=== PATIENT | male | born 1995 ===

== ENCOUNTER 2025-03-12 11:50 | Emergency (ER) | payer OTHER ==
[~2025-03-12] VITALS: Ht 185.4 cm; Wt 105.6 kg
--- NOTE | 2025-03-12 12:51 | ED.PDOC ---
HPI Comments This is a 29-year-old male who was putting shades up at his home he lost his footing and grabbed the hook that is attached to the shave caused a laceration to his right 2nd digit.. Tetanus is not up-to-date. No difficulty moving his. Actual finger just a laceration Chief Complaint: Laceration Time Seen by MD: 12:00 Reviewed Notes: Nurses Notes, Medications, Allergies Allergies: Coded Allergies: NO KNOWN ALLERGIES (Unverified , 03/12/25) Information Source: Patient Mode of Arrival: Ambulatory Severity: Moderate Complexity: Simple Laceration Length (cm): 4 Past Medical History PAST MEDICAL HISTORY: Denies Social History Smoker: Non-Smoker Alcohol: Rarely Drugs: Denies Drug Use Lives In: Home Integumetry: reports: laceration (Right 2nd digit) Physical Exam General Appearance: No Apparent Distress, Normal HEENT: Normal ENT Inspection, PERRL/EOMI, TMs Normal Neck: Full Range of Motion, Non-Tender, Normal Inspection Respiratory: Lungs Clear, No Respiratory Distress, Normal Breath Sounds Cardiovascular: Regular Rate/Rhythm Breast Exam: Deferred Gastrointestinal: Non Tender, Soft Genitalia: Deferred Pelvic: Deferred Rectal: Deferred Extremities: Tender (Right 2nd digit with a large laceration at the finger tip mostly macerated with multiple areas, of skin completely avulsed full range of motion of the finger without difficulty) Neurologic: Alert, Normal Mood Cerebellar Function: NOT DONE Reflexes: Normal Skin: Lacerations Lymphatic: No Adenopathy Was a procedure done? Was a procedure done?: Yes Sedation Sedation?: No Informed consent obtained: Yes Laceration Repair : Location Right 2nd digit Length 3 cm in length Anesthetic: Lidocaine, Without epi Laceration Repair Prep: Saline, by Irrigation, Manual Scrub Laceration Repair Wound Comple: epidermis/dermis repair Laceration Repair: Number of sutures (Five) Informed consent obtained: Yes Risks, benefits, and alternati: Yes Differential diagnosis Generic Laceration: Tendon Injury, Abrasion/Contusion X-Ray, Labs, Meds, VS Vital Signs Date Time Temp Pulse Resp B/P (MAP) Pulse Ox O2 Delivery O2 Flow Rate FiO2 03/12/25 11:51 97.9 54 16 133/89 100 97.9 X-Ray, Labs, Meds, VS Comment Patient seen and examined by me. Patient has a large laceration with macerated skin to the right 2nd digit. No x-ray was indicated at the time patient would good sensation I was able to suture up as much as I could with the exception of the area that was macerated. Patient is aware that he will have a scar postprocedure instructions were given. Time of 1ST Reevaluation: 12:47 Reevaluation 1ST: Improved Patient Education/Counseling: Diagnosis, Treatment, Prognosis, Need For Follow Up Family Education/Counseling: No Family Present Departure 1 Departure Time of Disposition: 12:48 Impression: Primary Impression: Laceration Disposition: 01 HOME / SELF CARE / HOMELESS Condition: Good Additional Instructions: Keep the dressing on for the next 48 hours Once the dressing is removed cleaned the area and apply the nonstick dressing Stitches come out in day 10 Try to live it limit movement Discharged With: Self Critical Care Note Critical Care Time?: No Stability Stability form required: WALE GarciaP Mar 12, 2025 12:51
[2025-03-12 12:57] VITALS: BP 125/86; PULSE 84; RESP 17; TEMP 98.1; O2SAT 100
== END 2025-03-12 12:58 | disposition home or self-care (01) ==
LOC: ER 11:50
DX: S61.012A Laceration without foreign body of left thumb without damage to nail, initial encounter (principal); X58.XXXA Exposure to other specified factors, initial encounter; Y93.89 Activity, other specified; Y92.89 Other specified places as the place of occurrence of the external cause; Y99.8 Other external cause status
CPT/HCPCS: 12002; 99282; A4649